=== PATIENT | female | born 1970 | race Caucasian/White ===

== ENCOUNTER 2022-08-03 12:07 | Outpatient (CLI) | payer OTHER, SELFPAY | END 2022-08-03 12:08 | disposition home or self-care (01) | LOC: NFLDREF 08-04 01:05 | PROVIDERS: PCP Family Medicine; Referring Provider Family Medicine; Visit Provider Family Medicine | DX: D68.59 Other primary thrombophilia (principal); N64.9 Disorder of breast, unspecified; F33.9 Major depressive disorder, recurrent, unspecified; F90.9 Attention-deficit hyperactivity disorder, unspecified type; I10 Essential (primary) hypertension; E78.5 Hyperlipidemia, unspecified | CPT/HCPCS: 85610 ==

== ENCOUNTER 2022-08-04 09:10 | Outpatient (CLI) | payer OTHER, SELFPAY | END 2022-08-04 09:11 | disposition home or self-care (01) | LOC: NFLDREF 21:19 | PROVIDERS: PCP Family Medicine; Referring Provider Family Medicine; Visit Provider Family Medicine | DX: R53.83 Other fatigue (principal); F33.9 Major depressive disorder, recurrent, unspecified; E66.01 Morbid (severe) obesity due to excess calories; F90.9 Attention-deficit hyperactivity disorder, unspecified type | CPT/HCPCS: 80053; 80061; 80306; 82043; 82570; 84443 ==

== ENCOUNTER 2022-08-13 09:41 | Outpatient (CLI) | payer OTHER, SELFPAY ==
--- NOTE | 2022-08-13 09:45 | CRLHL7_ITS ---
For Patients: As a result of the Cures Act, medical imaging exams and procedure reports are released immediately into your electronic medical record. You may view this report before your referring provider. If you have questions, please contact your health care provider. DIGITAL DIAGNOSTIC BILATERAL MAMMOGRAM USING TOMOSYNTHESIS AND COMPUTER-AIDED DETECTION RIGHT AXILLARY ULTRASOUND CLINICAL HISTORY: RIGHT breast axillary pain. COMPARISON: 08/16/2020, 07/25/2020, 04/22/2015, 01/23/2014. TECHNIQUE: Digital BILATERAL mammogram in four projections. Tomosynthesis and CAD utilized. Real-time ultrasound imaging of RIGHT axilla with imaging documentation. BREAST COMPOSITION: There are areas of scattered fibroglandular density. FINDINGS: 3D CC/MLO BILATERAL mammogram images submitted. No suspicious masses or architectural distortion. No adenopathy. No suspicious calcifications. Targeted RIGHT axillary ultrasound performed. No adenopathy or fluid collection. No solid mass. IMPRESSION: Normal BILATERAL mammograms and normal targeted RIGHT axillary ultrasound. No evidence of malignancy. RECOMMENDATIONS: Clinical follow-up. Routine screening mammography. Results and recommendations discussed with the patient. BI-RADS Category 2: Benign A lay language report of this examination will be provided to the patient. Dictated by Dyao Jarquin MD @ 08/13/2022 12:00:03 PM jj/Dictated by: Dayo Jarquin MD @ 08/13/2022 12:00:00 PM (Electronically Signed)
--- NOTE | 2022-08-13 10:15 | CRLHL7_ITS ---
For Patients: As a result of the Cures Act, medical imaging exams and procedure reports are released immediately into your electronic medical record. You may view this report before your referring provider. If you have questions, please contact your health care provider. PLEASE SEE DIGITAL DIAGNOSTIC BILATERAL MAMMOGRAM PERFORMED SAME DAY CRL:jesse molina/Dictated by: Dayo Jarquin MD @ 08/13/2022 12:00:00 PM (Electronically Signed)
== END 2022-08-13 09:42 | disposition home or self-care (01) ==
LOC: MAMMO 09:41
PROVIDERS: PCP Family Medicine; Visit Provider Family Medicine
DX: N64.9 Disorder of breast, unspecified (principal)
CPT/HCPCS: 76642; 77066; G0279

== ENCOUNTER 2022-10-08 11:57 | Outpatient (CLI) | payer OTHER, SELFPAY | END 2022-10-08 11:58 | disposition home or self-care (01) | LOC: NFLDREF 10-11 09:44 | PROVIDERS: PCP Family Medicine; Referring Provider Family Medicine; Visit Provider Nurse Practitioner Family | DX: R30.0 Dysuria (principal); N30.90 Cystitis, unspecified without hematuria; N30.01 Acute cystitis with hematuria | CPT/HCPCS: 87086; 87186 ==

== ENCOUNTER 2022-10-19 10:13 | Outpatient (CLI) | payer OTHER, SELFPAY | END 2022-10-19 10:14 | disposition home or self-care (01) | PROVIDERS: PCP Family Medicine; Visit Provider Family Medicine | DX: Z77.21 Contact with and (suspected) exposure to potentially hazardous body fluids (principal); M25.512 Pain in left shoulder | CPT/HCPCS: 80074 ==

== ENCOUNTER 2022-11-05 08:05 | Outpatient (CLI) | payer OTHER, SELFPAY ==
--- NOTE | 2022-11-05 08:15 | CRLHL7_ITS ---
For Patients: As a result of the 21st Century Cures Act, medical imaging exams and procedure reports are released immediately into your electronic medical record. You may view this report before your referring provider. If you have questions, please contact your health care provider. HISTORY: Right shoulder pain. TECHNIQUE: Noncontrast MRI of the right shoulder. COMPARISON: No prior. FINDINGS: Rotator cuff: The distal supraspinatus tendon anteriorly is severely abnormal over an approximately 1.2 cm anterior/posterior by 1.2 cm medial/lateral extent with high-grade partial to full-thickness tendon tearing present as noted on coronal oblique T2 image #12 series 7. There is no supraspinatus muscle atrophy. Moderate tendinosis of the distal infraspinatus tendon is present. There is cyst formation along the course of the tendon proximal to the footplate and extending towards the lateral margin of the musculotendinous junction. The infraspinatus muscle mass is maintained. Distal teres minor tendon is intact. Teres minor muscle mass is maintained. There is partial tearing of the superior cm of the distal subscapularis tendon. Subscapularis muscle mass is maintained. - AC joint and coracoacromial arch: AC joint degenerative arthrosis. Coracoclavicular ligament intact. Mild lateral downward sloping of the acromion. Acromial morphology is intermediate between type 1 and type 2. There is no significant subacromial spurring. No os acromiale. There is prominence of the coracoacromial ligament. The acromiohumeral interval measures approximately 9 mm. There is a small amount of subacromial-subdeltoid bursal fluid. The subcoracoid interval measures 8 mm. - Biceps-labral complex: Mild tendinosis of the proximal long head biceps tendon. No dislocation of tendon from bicipital groove. Moderate fluid within the biceps tendon sheath. Degenerative fraying superior labrum. Labrum below the equator is intact. - Glenohumeral joint: Small effusion. The articular surfaces are maintained. No significant malalignment. - Bones and soft tissues: No acute fracture or avascular necrosis. No abnormality within the suprascapular or spinoglenoid notches nor within the quadrilateral space. There is reactive cystic-like change involving greater tuberosity anteriorly. IMPRESSION: 1. Severely abnormal anterior distal supraspinatus tendon with high-grade partial to full-thickness tendon tearing. No muscle atrophy. 2. Infraspinatus tendinosis with cyst formation associated with the tendon proximal to the footplate. 3. Partial tearing of the superior cm distal subscapularis tendon. 4. Tendinosis of the proximal long head biceps tendon. Fraying of the adjacent superior labrum. 5. Small glenohumeral joint effusion. 6. AC joint degenerative changes. 7. Subacromial subdeltoid bursal fluid is either reactive or reflects mild bursitis. Dictated by Rigoberto Brown MD @ 11/05/2022 1:40:04 PM (Electronically Signed)
== END 2022-11-05 08:06 | disposition home or self-care (01) ==
PROVIDERS: PCP Family Medicine; Visit Provider Family Medicine
DX: M25.511 Pain in right shoulder (principal); M75.101 Unspecified rotator cuff tear or rupture of right shoulder, not specified as traumatic; M25.411 Effusion, right shoulder; M75.51 Bursitis of right shoulder
CPT/HCPCS: 73221

== ENCOUNTER 2023-02-11 14:34 | Outpatient (CLI) | payer OTHER, SELFPAY | END 2023-02-11 14:35 | disposition home or self-care (01) | LOC: NFLDREF 02-14 17:34 | PROVIDERS: PCP Family Medicine; Referring Provider Family Medicine; Visit Provider Physician Assistant | DX: R30.0 Dysuria (principal); N39.0 Urinary tract infection, site not specified | CPT/HCPCS: 87086 ==

== ENCOUNTER 2023-03-10 13:28 | Outpatient (CLI) | payer OTHER, SELFPAY | END 2023-03-10 13:29 | disposition home or self-care (01) | PROVIDERS: PCP Family Medicine; Visit Provider Family Medicine | DX: Z01.818 Encounter for other preprocedural examination (principal); R42 Dizziness and giddiness | CPT/HCPCS: 80053; 84443 ==

== ENCOUNTER 2023-03-15 10:54 | Outpatient (CLI) | payer OTHER, SELFPAY | END 2023-03-15 10:55 | disposition home or self-care (01) | PROVIDERS: PCP Family Medicine; Visit Provider Family Medicine | DX: Z01.818 Encounter for other preprocedural examination (principal); D68.59 Other primary thrombophilia; E11.42 Type 2 diabetes mellitus with diabetic polyneuropathy; E66.01 Morbid (severe) obesity due to excess calories | CPT/HCPCS: 85730 ==

== ENCOUNTER 2023-03-22 06:20 | Day surgery (SDC) | payer OTHER, SELFPAY ==
[2023-03-22] VITALS (18 sets, daily range): BP systolic 127–153; BP diastolic 70–96; PULSE 56–78; RESP 12–16; TEMP 36.1–36.8; O2SAT 94–100; BMI 37.4
--- OUTSIDE RECORDS SUMMARY | 2023-03-22 06:23 | XMS_ITS | Continuity of Care Document ---
Author Name Unknown Organization [facility] Address [address] [address] [place] [address] Phone Care Team Providers Care Protective Signal Repairer Name Role Phone Unavailable Unavailable Unavailable Allergies, Adverse Reactions, Alerts Substance Reaction Status Criticality NSAIDS (Non-Steroidal Anti-Inflammatory Drug) on couma din Active No Information Medications Medication Instructions Dosage Effective Dates (start - stop) Status Comments Lipitor 20 mg Tab Take one tablet by mouth daily - Active Alva 180 mg Tab Take one tablet by mouth daily - Active Nasonex 50 mcg/Actuation [place] Inhale one time via nostril daily - Active Nexium 40 mg Cap Take one tablet by mouth daily - Active warfarin 2.5 mg Tab Use as directed - Acti ve Procedures Procedure Date Ugi Endo; Dx W/wo Collec Advance Directives Directive Yes / No Effective Date File Name No Information Encounters Encounter Description Practice Location Reason(s) For Visit Diagnoses Date Provider Providers Copied on Encounter [facility], [address] [address], [place], [place], [id number], tel:[phone] [facility] Abn X-ray GI tract No Information Referring Provider: Miles Lockhart MD [facility], [address] [place] [address], [address]. tel:[phone] Family History Family Member Type Diagnosis Age At Onset No Information Payers Payer name Insurance type Covered republican ID Authoriza tion(s) No Information Social History Type Description Quantity Date Captured Comments Sex Female Smoking Status No Information Chief Complaint And Reason For Visit No Information Reason For Referral Reason For Referral No Information History Of Present Illness Encounter Date Complaint History Of Prese nt Illness No Information Functional Status Date Functional Assessmen t No Information Instructions Date Instruction Additional Infor mation No Information Assessments Type Assessment Date No Information Patient Care Teams Name Effective Dates (start - stop) Status Members No Information
--- OUTSIDE RECORDS SUMMARY | 2023-03-22 06:23 | XMS_ITS | Continuity of Care Document ---
Author Name Unknown Organization [facility] Address [address] [address] [place] [address] Phone Care Team Providers Care Lockstitch Coat Joiner Name Role Phone Unavailable Unavailable Unavailable Allergies, Adverse Reactions, Alerts Substance Reaction Status Criticality NSAIDS (Non-Steroidal Anti-Inflammatory Drug) on couma din Active No Information Medications Medication Instructions Dosage Effective Dates (start - stop) Status Comments Lipitor 20 mg Tab Take one tablet by mouth daily - Active Alva 180 mg Tab Take one tablet by mouth daily - Active Nasonex 50 mcg/Actuation [place] Inhale one time via nostril daily - [...] Diagnoses Date Provider Providers Copied on Encounter [facility], [address] [address], [place], [place], [id number], tel:[phone] [facility] Abn X-ray GI tract No Information Referring Provider: Miles Lockhart MD [facility], [address] [place] [address], [address]. tel:[phone] Family History Family Member Type Diagnosis Age At Onset No Information Payers Payer name Insurance type Covered alliance party ID Authoriza tion(s) No Information Social History [...]
[2023-03-22] MEDS: LACTATED RINGERS 1000 ML 1,000 ML 100 ML IV (07:00)
[2023-03-22] MEDS: fentaNYL 100 MCG/2 ML inj IVP (07:22)
[2023-03-22] MEDS: MIDAZOLAM HCL 1 MG/ML inj IVP (07:22)
--- NOTE | 2023-03-22 07:33 | P.NB_ITS ---
Nerve Block Nerve Block Time Seen by Provider: 07:30 Date Seen: 03/22/23 Type of block requested by surgeon for post-operative analgesia: supraclavicular Side: right Time out performed: Yes Verification of patient name: Yes Verification of date of : Yes Site marking: site marked Name of person performing procedure: Harrison Assistants, if any: Monster Continuous monitoring Was continuous monitoring of O2 sat, B/P, cardiac technologist, recorded every 15 minutes?: Yes Procedure Checklist: sterile prep, needles and gloves Ultrasound guided. Images saved: Yes Medications given in 5ml increments after negative aspiration: Ropivicaine %: 0.5 mL: 20 Needle gauge: 22 Decadron (mg): 10 Precedex (mcg): 25 Patient tolerated procedure well: Yes Block Charges Block Charge (with Pro Fee): Brachial Plexus Use of Ultrasound Machine for Block: Yes- US Guidance/pain block
[2023-03-22 07:39] LABS: INR 1.38 (0.91-1.10); Prothrombin Time 17.9 Seconds
--- NOTE | 2023-03-22 07:44 | SUR.PREOP ---
TIME?OUT:?0720 PT/RN/MDA?VERIFICATION?OF?SURGICAL?SITE,?PROCEDURE,?AND?CONSENT OBTAINED?PRIOR?TO?INVASIVE?PROCEDURE.
[2023-03-22] MEDS: SCOPOLAMINE 1 MG/3 DAY PATCH 1 PATCH TRANSDERMA (07:45)
[2023-03-22] MEDS: EPINEPHrine 1 MG in SODIUM CHLORIDE IRRIG SOLUTION 3,000 ML 9003 MG IRRIGATION ×4 (08:30→09:05)
--- NOTE | 2023-03-22 09:40 | P.ORPRC_ITS ---
Procedure Note Date of procedure: 03/22/23 Procedure: PREOPERATIVE DIAGNOSES: 1. Right shoulder rotator cuff tear. 2. Right shoulder subacromial impingement syndrome. POSTOPERATIVE DIAGNOSES: 1. Right shoulder rotator cuff tear - supraspinatus. 2. Right shoulder subacromial impingement syndrome. NAME OF OPERATION: 1. Right shoulder arthroscopic rotator cuff repair. 2. Right shoulder arthroscopic bursectomy, subacromial decompression/partial acromioplasty. SURGEON: Yoshi Beltran MD MANAGER CALL CENTER: Harmeet Rudd. Of note, a skilled insurance underwriting assistant was critical for this case to aide in patient positioning, suture manipulation, arm positioning, instrument positioning, and closure. ANESTHESIA: General plus preoperative supraclavicular block. EBL: 25 mL IMPLANTS: Arthrex 4.75 mm BioComposite SwiveLock suture anchor (x2); Arthrex 2.6 mm standard FiberTak RC (x1) COMPLICATIONS: None evident INDICATIONS: The patient is a pleasant, 52-year-old female who has experienced right shoulder pain that has been increasing in recent time. Physical exam and imaging were consistent with a rotator cuff tear. Given their findings, as well as the weakness and pain, and inadequate response to nonoperative management, recommendation was made for surgery. FINDINGS: Exam under anesthesia revealed stable shoulder with excellent range of motion. The diagnostic arthroscopy revealed grade 2-3 chondromalacia anterior humeral head. The Subscapularis tendon was torn from its upper border with moderate retraction. The long head of the biceps tendon was dislocated out of the bicipital groove and partially torn and moderate thickness manner. The superior rotator cuff tendon was found to be torn high-grade partial-thickness manner through the anterior supraspinatus. The labrum was degeneratively frayed in the anterior and superior aspects. No loose bodies were identified within the pouch or subscapularis recess. PROCEDURE: Following a thorough discussion of risks, benefits, and alternatives, consent was obtained and the right shoulder was marked. The pa tient was brought to the operating room and placed supine on the operating table. Induction of anesthesia was completed after preoperative supraclavicular block was administered in preop holding. Appropriate time out was performed identifying proper patient, site, and procedure. 2 g IV Ancef was administered within 1 hour of incision preoperatively. The right upper extremity was prepped and draped in the appropriate sterile fashion using ChloraPrep prep. This was after the patient was positioned in the beach chair with their head in neutral alignment and all bony prominences well padded. The shoulder was insufflated with 20mL of normal saline via an 18g spinal needle from a posterior approach. An 11 blade skin incision allowed a blunt trochar to be inserted and diagnostic arthroscopy to be performed with the findings as noted above. An anterior portal was established with an outside in technique. This allowed the probe to be inserted and confirm the diagnostic arthroscopic findings. The shaver was then inserted and allowed debridement of the anterior and superior labrum as well as the the anterior loose chondral tissue in the humeral head. Finally, biceps tenotomy was performed with debridement of the biceps stump. Following this, the upper border subscapularis was repaired after debriding the lesser tuberosity with the shaver and [place] cautery. Subscapularis was captured in horizontal mattress fashion with a fiber tape suture. The tails were brought to a single anchor in the lesser tuberosity with excellent reapproximation of the subscap tendon and good excursion/tension. Thereafter, the subacromial space was entered. Here, a complete bursectomy and partial acromioplasty/subacromial decompression was performed with a combination of radiofrequency ablator, the shaver, and a 5.5 mm bur. Further inspection of the supraspinatus and infraspinatus rotator cuff was performed. This identified the tear as noted above. The margins of the tear were debrided, and the greater tuberosity was debrided with a combination of the [place]ollo cautery, shaver, and bur on reverse setting. [After gentle decortication, a single 2.6 mm FiberTak RC was placed along the medial row at the articular margin edge. The 4 suture tails were all passed independently and brought to a single lateral 4.75 mm anchor. The rotator cuff showed excellent reapproximation of the greater tuberosity with good security upon probing. Prior to anchor truck driver rubbish collector removal, the eyelet sutures were tugged on for each anchor and found that the anchor had excellent stability within the bone. The shoulder was placed through range of motion and found to be stable. The rotator cuff was re-probed and found to be stable. Instruments were removed. Excess fluid was drained, closure performed with 4-0 Monocryl and Steri-Strips. Dressings were applied. Sling was applied. The patient was awoken from anesthesia and transferred to the PACU in stable condition. A skilled insurance underwriting assistant was critical for this case to aid in patient positioning, limb positioning, skill to manipulate arthroscopic instruments and camera, suture management, patient safety, and closure. PLAN: 1. Elbow, forearm, wrist and digit range of motion as tolerated. 2. Encouraged ice. 3. Percocet for pain as needed. 4. Sling at all times except for ROM and showering. 5. Follow up with PA visit in 1-2 weeks for wound check. Initiate physical therapy following that visit for passive range of motion. Initiate active assisted range of motion at 5 weeks. May do pendulums now.
--- NOTE | 2023-03-22 10:08 | W.ANESCHARGE ---
Anesthesia Charges Start Date/Time Anesthesia Start Date: 03/22/23 Anesthesia Start Time: 07:38 Stop Date/Time Anesthesia Stop Date: 03/22/23 Anesthesia Stop Time: 10:01
[2023-03-22] MEDS: fentaNYL 100 MCG/2 ML inj 50 MCG IVP ×2 (10:10→10:16)
--- NOTE | 2023-03-22 10:30 | W.ANESCHARGE ---
Anesthesia Charges Start Date/Time Anesthesia Start Date: 03/22/23 Anesthesia Start Time: 07:38 Stop Date/Time Anesthesia Stop Date: 03/22/23 Anesthesia Stop Time: 10:01
== END 2023-03-22 12:56 | disposition home or self-care (01) ==
PROVIDERS: PCP Family Medicine; Visit Provider Orthopaedic Surgery Sports Medicine
PROC: (CPT 29805; principal; 2023-03-22 07:30)
DX: M75.101 Unspecified rotator cuff tear or rupture of right shoulder, not specified as traumatic (principal); M75.41 Impingement syndrome of right shoulder; G89.18 Other acute postprocedural pain
CPT/HCPCS: 29827; 29828; 29826; 29823; 1630; 36415; 64415; 76942; 82962; 85610; A9270; C1713; J0171; J0330; J1100; J2250; J2405; J2704; J2710; J2795; J3010; J7120; L3670

== ENCOUNTER 2023-07-29 09:40 | Outpatient (CLI) | payer MEDICAID, SELFPAY | END 2023-07-29 09:41 | disposition home or self-care (01) | PROVIDERS: PCP Family Medicine; Visit Provider Family Medicine | DX: E78.5 Hyperlipidemia, unspecified (principal); E11.9 Type 2 diabetes mellitus without complications; I10 Essential (primary) hypertension | CPT/HCPCS: 80053; 80061; 83036 ==

== ENCOUNTER 2023-08-27 08:37 | Outpatient (CLI) | payer MEDICARE, SELFPAY ==
--- OUTSIDE RECORDS SUMMARY | 2023-08-30 07:28 | XMS_ITS | Referral Summary ---
Author Name Unknown Organization [facility] Address [address] [place] [address] Care Team Providers Care Military Professional Name Role Phone [facility], [facility] Primary Care Provider Allergies Active Allergy Reactions Criticality Noted Date Comments Adhesive Tape 09/19/2021 Codeine GI Disturbance 09/19/2021 Medications Medication Sig Dispensed Refills Start Date End Date Status cyclobenzaprine (FLEXERIL) 10 MG tablet Take 0.5-1 tablets (5-10 mg) by mouth 3 times daily as needed for muscle spasms 20 tablet 06/14/2021 Active Social History Tobacco Use Types Packs/Day Years Used Date Smoking Tobacco: Never Assessed Adolescent Education Answer Date Record ed Getting School Help Needed Not on file 01/31 Sex and Gender Information Value Date Recorded Sex Assigned at Not on file Gender Identity Not on file Sexual Orientation Not on file Last Filed Vital Signs Vital Sign Reading Time Taken Comments Blood Pressure 119/81 09/19/2021 3:00 PM CDT Pulse 81 09/19/2021 3:00 PM CDT Temperature 36.9 ??C (98.4 ??F) 09/19/2021 1:26 PM CD T Respiratory Rate 18 09/19/2021 3:00 PM CDT Oxygen Saturation 98% 09/19/2021 3:00 PM CDT Inhaled Oxygen Concentration - - Weight 88.8 kg (195 lb 12.3 oz) 06/14/2021 1:25 PM [employer] Height - - Body Mass Index - - Plan of Treatment Not on file Procedures Procedure Name Priority Date/Time Associated Diagnosis Comments BASIC METABOLIC PANEL STAT 09/19/2021 1:38 PM CDT from Last 3 Months or Most Recently Relevant to Health Maintenance Results * (ABNORMAL) Basic metabolic panel (BMP) (09/19/2021 1:38 PM CDT) Sodium 138 133 - 144 mmol/L 09/19/2021 2:03 PM CDT LABORATORY Potassium 3.8 3.4 - 5.3 mmol/L 09/19/2021 2:03 PM CDT LABORATORY Chloride 105 94 - 109 mmol/L 09/19/2021 2:03 PM CDT LABORATORY Carbon Dioxide (CO2) 29 20 - 32 mmol/L 09/19/2021 2:03 PM CDT LABORATORY Anion Gap 4 3 - 14 mmol/L 09/19/2021 2:03 PM CDT LABORATORY Urea Nitrogen 13 7 - 30 mg/dL 09/19/2021 2:03 PM CDT LABORATORY Creatinine 0.64 0.52 - 1.04 mg/dL 09/19/2021 2:03 PM CDT LABORATORY Calcium 9.8 8.5 - 10.1 mg/dL 09/19/2021 2:03 PM CDT LABORATORY Glucose 136(H) 70 - 99 mg/dL 09/19/2021 2:03 PM CDT LABORATORY GFR Estimate >90 >60 mL/min/1.7 3m2 09/19/2021 2:03 PM CDT LABORATORY Comment:Effective March 272020 eGFRcr in adults is calculated using the 2020 CKD-EPI creatinine equation which includes age and gender (Tj et al., NEJ, DOI: 10.1056/WMYIrp9937706) Blood BLOOD SPECIMEN / Unknown Venipuncture / Unknown 09/19/2021 1:38 PM CDT 09/19/2021 1:43 PM CDT Felipe Senior MD LAB - BLOOD [facility] [address] Lab (1st floor, no room number) [place] [address], [facility] [phone] from Last 3 Months or Most Recently Relevant to Health Maintenance Care Teams Military Professional Relationship Specialty Start Date End Date [facility] [address] [place] [address] PCP - General 09/19/21
--- OUTSIDE RECORDS SUMMARY | 2023-08-30 07:28 | XMS_ITS | Clinical Summary ---
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 Height - - Body Mass Index - - Plan of Treatment Health Maintenance Due Date Last Done Comments A1C 1972 ADVANCE CARE PLANNING 1972 ANNUAL REVIEW OF HM ORDERS 1972 CT COLONOGRAPHY 1972 DIABETIC FOOT EXAM 1972 EYE EXAM 1972 FIT 1972 FLEX SIG 1972 LIPID 1972 MAMMO SCREENING 1972 MICROALBUMIN 1972 YEARLY PREVENTIVE VISIT 1972 sDNA (Cologuard) 1972 COLONOSCOPY 1982 COLORECTAL CANCER SCREENING 1982 HIV SCREENING 10/27/1987 HEPATITIS C SCREENING 1990 PAP 1993 Pneumococcal Vaccine: Pediatrics (0 to 5 Years) and At-Risk Patients (6 to 64 Years) (2 of 2 - PCV) 12/01/2018 12/01/2017 BMP 09/19/2022 09/19/2021 ZOSTER IMMUNIZATION (1 of 2) 2022 COVID-19 Vaccine (4 - season) 2022 07/21/2021, 10/21/2020, 09/19/2020 PHQ-2 (once per calendar year) 2023 INFLUENZA VACCINE (Season Ended) 2023 01/16/2021, 01/10/2020, 02/11/2018, Additional history exists DTAP/TDAP/TD IMMUNIZATION (3 - Td or Tdap) 11/04/2026 11/04/2016, 12/16/2006, 12/23/2001 HEPATITIS B IMMUNIZATION Completed 019, 03/01/2007, 12/16/2006 HPV IMMUNIZATION Aged Out No longer e ligible based on patient's age to complete this topic IPV IMMUNIZATION Aged Out No longer e ligible based on patient's age to complete this topic MENINGITIS IMMUNIZATION Aged Out No l onger eligible based on patient's age to complete this topic RSV MONOCLONAL ANTIBODY Aged Out No l onger eligible based on patient's age to complete this topic Procedures Procedure Name Priority Date/Time Associated Diagnosis [...] - 14 mmol/L 09/19/2021 2:03 PM CDT [facility] Urea Nitrogen 13 7 - 30 mg/dL 09/19/2021 2:03 PM CDT LABORATORY Creatinine 0.64 0.52 - 1.04 mg/dL 09/19/2021 2:03 PM CDT [facility] Calcium 9.8 8.5 - 10.1 mg/dL 09/19/2021 2:03 PM CDT LABORATORY Glucose 136(H) 70 - 99 mg/dL 09/19/2021 2:03 PM CDT LABORATORY GFR Estimate >90 >60 mL/min/1.7 3m2 09/19/2021 2:03 PM CDT LABORATORY Comment:Effective March 272020 eGFRcr in adults is calculated using the 2020 CKD-EPI creatinine equation which includes age and gender (Tj et al., NEJM, DOI: 10.1056/YVGJjx5234592) Blood BLOOD SPECIMEN / Unknown Venipuncture / Unknown 09/19/2021 1:38 PM CDT 09/19/2021 1:43 PM CDT Felipe Senior MD LAB - BLOOD [facility] Organization Address City/State/ZIP Co de Phone Number LABORATORY [facility] [address] Lab (1st floor, no room number) [place] [address], [facility] [phone] from Last 3 Months or Most Recently Relevant to Health Maintenance Care Teams Software Project Lead Relationship Specialty Start Date End Date [facility], [facility] [address] [place] [address] PCP - General 09/19/21
--- OUTSIDE RECORDS SUMMARY | 2023-08-30 07:29 | XMS_ITS | Clinical Summary ---
Author Name Unknown Organization [employer] [facility] [employer] [facility] Address [place], [place] [address] Care Team Providers Care Account Services Specialist Name Role Phone Greg Lovell MD Unavailable [phone] Juan Jones Unavailable Unavailable Pcp, No Primary Care Provider Unavailabl e Allergies Active Allergy Reactions Criticality Noted Date Comments Codeine Nausea And Vomiting 10/28/2004 Latex Rash 07/14/2021 Lisinopril Cough 09/10/2021 Milk Diarrhea,Vomiting 2013 Lactose intolerance Mold Extracts Other - Describe In Comment Field 02/24/2005 stuffy nose, sneezing Unlisted Allergen (Include Detail In Comments) Other - Describe In Comment Field 09/17/2015 Environmental allergies, dust- sneezing, itchy eyes. Adhesive Tape Rash 02/24/2005 Satin tape Colesevelam Palpitations 12/19/2004 Medications Medication Sig Dispensed Refills Start Date End Date Status lancets (MICROLET LANCET)Indications:Uncon trolled type 2 diabetes mellitus without complication, without long-term current use of insulin Dispense item covered by pt ins. E11.65 NIDDM type II, uncontrolled - Test 3 times/day, Reason: High A1C 100 Each 5 7 Active blood-glucose meterIndications:Uncontr olled type 2 diabetes mellitus without complication, without long-term current use of insulin Dispense meter covered by pt ins. E11.9 NIDDM type II - Test 1 time/day 1 Device 8 Active cetirizine (ZYRTEC) 10 mg tabletIndications:Chroni c nonseasonal allergic rhinitis due to pollen Take 1 tablet by mouth once daily. 90 tablet 1 8 Active blood sugar diagnostic (CONTOUR NEXT STRIPS) stripIndications:Uncontr olled type 2 diabetes mellitus without complication, without long-term current use of insulin Dispense item covered by pt ins. E11.65 NIDDM type II, uncontrolled - Test 3 times/day, Reason: High A1C 300 Strip 3 8 Active medication order composerIndications:Obst ructive sleep apnea New CPAP supplies: Humidifier Chamber x1, nasal mask with cushion x1, Tubing (heated if desired) x1, Headgear x1, Disposable filters (reusable and disposable) X1; 1 unit 8 Active triamcinolone (ARISTOCORT; KENALOG) 0.1 % creamIndications:Atopic dermatitis, unspecified type,Axillary mass, right Apply topically to affected area(s) 2 times daily. Up to 2 weeks for eczema flare. 45 g 1 8 Active Additional Information Patient taking differently:TopicalBID PRN, Up to 2 weeks for eczema flare., Informant: Patient's Recall, Reported on 07/14/2021 triamcinolone, 55 mcg each actuation, nasal (NASACORT AQ) 55 mcg nasal sprayIndications:Chronic nonseasonal allergic rhinitis due to pollen Inhale 2 Sprays in the nostril(s) once daily. 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 Use for eye allergy symptoms. Use Maximum of once daily. 1 Bottle 9 1 Active famotidine (PEPCID) 20 mg tablet Take 20 mg by mouth at bedtime. Active hydrOXYzine HCL (ATARAX) 10 mg tabletIndications:Insomn ia, unspecified type Take 1 Tablet (10 mg) by mouth at bedtime. 30 Tablet 2 Active atorvastatin (LIPITOR) 40 mg tabletIndications:Pure hypercholesterolemia Take 1 Tablet (40 mg) by mouth at bedtime. 90 tablet. 1 2 Active multivitamin (Multiple Vitamins) tablet Take 1 Tablet by mouth once daily. 0 2 Active CPAPIndications:VIDYA (obstructive sleep apnea) CPAP machine for home use at pressure 4-15 cmw, nasal mask x1/3month with nasal cushion x2/mo 1 Each 11 2 Active losartan (COZAAR) 50 mg tabletIndications:Essent ial hypertension Take 1 Tablet (50 mg) by mouth once daily. 90 Tablet 1 2 Active FLUoxetine (PROZAC) 20 mg capsuleIndications:Moder ate episode of recurrent major depressive disorder (HC) Take 2 Capsules (40 mg) by mouth once daily. 180 Capsule 1 2 Active minoxidiL (LONITEN) 2.5 mg tabIndications:Essential hypertension,Hair loss Take 2 Tablets (5 mg) by mouth once daily. 180 Tablet 1 2 Active traZODone (DESYREL) 50 mg tabletIndications:Insomn ia, unspecified type TAKE 1/2 TO 1 (ONE-HALF TO ONE) TABLET BY MOUTH AT BEDTIME NEEDED FOR SLEEP 90 Tablet 3 Active warfarin (COUMADIN) 1 mg tabletIndications:Person al history of thrombophlebitis,Anticoa gulation monitoring, INR range 2-3 Take by mouth 3 mg (2 mg x 1 and 1 mg x 1) every Tue, Sat; 2 mg (2 mg x 1) all other days in the evening OR as directed 26 Tablet 3 Active warfarin (COUMADIN) 2 mg tabletIndications:Person al history of thrombophlebitis,Anticoa gulation monitoring, INR range 2-3,Primary hypercoagulable state (HC) Take by mouth 3 mg (2 mg x 1 and 1 mg x 1) every Tue, Sat; 2 mg (2 mg x 1) all other days in the evening OR as directed 3 Active montelukast (SINGULAIR) 10 mg tabletIndications:Chroni c nonseasonal allergic rhinitis due to pollen Take 1 Tablet (10 mg) by mouth at bedtime. 90 Tablet 2 3 Active cyclobenzaprine (FLEXERIL) 10 mg tabletIndications:Chroni c tension-type headache, not intractable Take 1 Tablet (10 mg) by mouth at bedtime if needed for Muscle Spasm. 30 Tablet 3 3 Active diazePAM (VALIUM) 2 mg tabletIndications:Vertig o Take 1 Tablet (2 mg) by mouth 3 times daily if needed (vertigo). 7 Tablet 3 Active meclizine (ANTIVERT) 25 mg tabletIndications:Vertig o Take 1 Tablet (25 mg) by mouth three times daily. 20 Tablet 3 Active Active Problems Problem Noted Date Diagnosed Date Type 2 diabetes mellitus wit h hyperglycemia, without long-term current use of insulin 09/10/2021 Severe episode of recurrent major depressive disorder, without psychotic features 07/03/2021 Type 2 diabetes mellitus wit hout complication, without long-term current use of insulin 07/03/2021 Controlled substance agreement signed 09/30/2020 Overview: Adderall for ADHD Pam Perla MD...09/30/2020 5:29 PM Attention deficit hyperactiv ity disorder (ADHD), combined type 03/03/2019 Hyperplastic polyp of sigmoid colon 11/23/2018 Overview: Colonoscopy 10/2018. Repeat in 5 years. Essential hypertension 10/21/2018 Morbid exogenous obesity 07/14/2017 Chondromalacia of patella, right 09/16/2013 Degenerative arthritis of right knee 09/16/2013 Moderate episode of recurrent major depressive d isorder 09/23/2012 Endometritis 07/03/2012 Hemorrhoid 03/12/2011 S/P repeat LST section with WES 011 S/P bilateral tubal ligation 03/10/2011 Overview: [place] procedure VIDYA 07/30/2010 AHI- 22, REM-94 with desats 011 Family history of malignant neoplasm of gastrointestinal tract 09/05/2008 Overview: Colonoscopy 08/2008 hemorrhois repeat in 5 years Colonoscopy 01/2014 polyp repeat in 5 years Colonoscopy 10/2018 hyperplastic polyp, repeat in 5 years PTSD (post-traumatic stress disorder) 07/17/2008 HYPERCHOLESTEROLEMIA, PURE 10/14/2000 Overview: Atorvastatin (Lipitor) June 2012: Stopped due to Patient concern that statin can cause diabetes. 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 Coach: Dr Jones)~anticoag therapy~hypercholesterolemia~obesity Resolved Problems Problem Noted Date Diagnosed Date Resolved Date Uncontrolled type 2 diabetes mellitus, without long-term current use of insulin 10/28/2016 07/03/2021 Overview: New diagnosis 10/2016 Prediabetes 05/14/2016 07/14/2017 Anticoagulation monitoring, INR range 2-3 01/23/2014 07/06/2022 GBS (group B Streptococcus c arrier), +RV culture, currently 03/05/2011 01/17/2014 Previous delivery a ffecting , antepartum 02/20/2011 03/10/2011 GDM, class A2 12/03/2010 05/14/2016 Advanced maternal age in 09/09/2010 04/29/2012 Screening, , for ma lformation by ultrasound 09/09/2010 04/29/2012 Adjustment disorder with depressed mood 12/04/2009 09/23/2012 Adjustment disorder with depressed mood 10/08/2006 07/17/2008 Anxiety state, unspecified 10/08/2006 0 07/17/2008 Esophageal reflux 08/10/2005 03/10/2011 Single liveborn, [facility] in [facility], delivered by delivery 03/05/2005 03/10/2011 Pain in joint, lower leg 12/03/2003 PAIN, ABDOMINAL, EPIGASTRIC 01/13/2001 03/10/2011 HYPERCHOLESTEROLEMIA, PURE 10/14/2000 1 05/10/2010 Obesity 07/14/2017 DISORDER, TOBACCO USE 2012 HYPERTRIGLYCERIDEMIA, SEVERE 03/10/2011 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 Immunizations Name Administration Dates Next Due AMB Influenza, IIV4 PF (=>6 mos Flulaval,Fluzone Fluarix)(Flu Clinic Only) 02/11/2018 COVID-19 vaccine (Moderna 100mcg/0.5mL) PF, MDV 10/21/2020,09/19/2020 COVID-19 vaccine (Moderna Fermín julio 50mcg/0.25mL) PF, MDV 07/21/2021 HepA-HepB (Twinrix) 04/21/2019,03/01/2007,200601/16/2007 Influenza, IIV3 (Age 6-35 mos) 12/20/2010 Influenza, IIV3 (Age >=3 years) 03/29/20 12,12/20/2010,01/11/2010,03/01,03/03/2006,02/17/2005,04/03/2003 Influenza, IIV4 01/02/2022, 1,01/10/2020,03/03,01/15/2016,01/17/2014 Influenza,CCIIV4 PRESERV FREE 04/16/2019 MMR 12/16/2006 Pneumococcal Conj 20-valent (Prevnar 20) 01/02/2022 Pneumococcal Poly,23-Valent (Pneumovax) 12/01/2017 Td (Age >=7 Years) 11/04/2016,12/23/2001 Tdap 12/16/2006 Tetanus Toxoid, Unspecified 11/04/2016 Tuberculin (PPD) 12/16/2006 Typhoid (injectable) 03/01/2007 Family History Medical History Relation Name Comments Other Brother CP Cancer-breast Father breast was rem gisele but not sure if it was cancerous Cancer-colon Father Heart Disease Father Hyperlipidemia Father Hypertension Father Other Father CAD ? ?VSD, CAB G, and valve replacment Heart Disease Maternal Aunt bypass Other Maternal Grandfather leukemi a, DVT in legs Diabetes Maternal Grandmother Heart Disease Maternal Uncle bypass Hyperlipidemia Mother Other Mother PE c oagulopathy Other Paternal Grandfather brain a neurysm Cancer-colon Paternal Grandmother Heart Disease Paternal Grandmother Relation Name Status Comments Brother Alive Father Maternal Aunt Maternal Grandfather Maternal Grandmother Alive Maternal Uncle Mother Alive Paternal Grandfather Paternal Grandmother Social History Tobacco Use Types Packs/Day Years Used Date Smoking Tobacco: Former Cigarettes 0.5 10 0 07/14/1999 - 07/13/2009 Smokeless Tobacco: Never Tobacco Cessation:Counseling Given: Yes Alcohol Use Standard Drinks/Week Comments Not Currently 0 (1 standard drink = 0.6 oz pur e alcohol) once a month PHQ-2 Answer Date Recorded PHQ-2 TOTAL SCORE 2 01/01/2022 Social Connections Answer Date Recorded Frequency of Communication with Friends and Fami ly Not on file 04/16/2021 Financial Resource Strain Answer Date R ecorded Difficulty of Paying Living Expenses Not on file 04/16/2021 Difficulty of Paying Living Expenses Not on file 04/16/2021 Sex and Gender Information Value Date Recorded Sex Assigned at Female 03/26/2020 9:52 AM CHILD SUPPORT CASE OFFICER Gender Identity Female 03/26/2020 9:52 AM CHILD SUPPORT CASE OFFICER Sexual Orientation Choose not to disclose 2019 9:52 AM CHILD SUPPORT CASE OFFICER Obstetrics History Para Term AB IAB SAB Ectopic Multiple Livin g Live Births 5 3 3 0 2 1 0 0 0 3 4 Date Outcome GA Total Labor Labor/2nd/3rd Weight Sex Delivery Anes PTL Keira A1 A5 Name Cl in 1987 AB 8w0 d 04/26 IAB 12w 0d ELECTIVE AB Dece ased 01/21 Term 39w 0d 9h 00m/ 3.94 kg (8 lb 11 oz) F Gener al N Aide ng MPP-A NW Comments:unfavorable c x 03/05 Term 38w 0d 3.35 kg (7 lb 6 oz) F Epidu ral N Aide ng MPP-A NW 03/09 Term 39w 2d M CS-LTranv N Aide ng Rishabh enko Delivery Location:[place] Last Filed Vital Signs Vital Sign Reading Time Taken Comments Blood Pressure 175/83 03/08/2023 9:00 PM CHILD SUPPORT CASE OFFICER Pulse 64 03/08/2023 9:00 PM CHILD SUPPORT CASE OFFICER Temperature 36.4 ??C (97.6 ??F) 03/08/2023 5:38 PM CS T Respiratory Rate 18 03/08/2023 5:38 PM CHILD SUPPORT CASE OFFICER Oxygen Saturation 99% 03/08/2023 9:00 PM CHILD SUPPORT CASE OFFICER Inhaled Oxygen Concentration - - Weight 86.2 kg (190 lb) 03/08/2023 5:38 PM CHILD SUPPORT CASE OFFICER Height 157.5 cm (5' 2) 03/08/2023 5:38 PM CHILD SUPPORT CASE OFFICER Body Mass Index 34.75 03/08/2023 5:38 PM CHILD SUPPORT CASE OFFICER Plan of Treatment Health Maintenance Due Date Last Done Comments Mammogram for age 45-75 08/16/2021 08/17/19 21, 07/25/2020, 04/22/2015, Additional history exists Zoster (shingles) series for age 50+ (1 of 2) 2022 COVID-19 vaccine series ( - season) 2022 07/21/2021, 10/21/2020, 09/19/2020 BMI (ht and wt on same day) for age 18+ 01/02/2023 01/02/2022, 04/25/2021, 09/21/2020, Additional history exists Depression screening for age 12+ 01/05/2023 01/05/2022, 01/02/2022, 07/18/2021, Additional history exists Colonoscopy through age 75 11/22/202311/21, 11/21/2018, 02/12/2014, Additional history exists Influenza for age 50-64 12/26/2023 01/03/20 22, 01/16/2021, 01/10/2020, Additional history exists Pap test for age 21-65 11/16/2024 , 11/17/2019, 10/05/2016, Additional history exists Lipids for age 45-75 09/10/2026 09/10/2021, 09/30/2020, 05/10/2020, Additional history exists Tetanus booster 11/04/2026 11/04/2016, 11/25, 12/23/2001 Tdap Completed 12/16/2006 HIV for age 15-65 Completed 11/17/2019, 09/09/2010 Hepatitis C screening for ag e 18-79 Completed 11/17/2019, 05/29/2002 Pneumococcal series for age 6-64 Completed 01/03/20, 12/01/2017 Procedures Procedure Name Priority Date/Time Associated Diagnosis Comments LIPID PANEL W REFLEX MEASURED LDL Routine 09/10/2021 11:04 AM CDT HYPERCHOLESTEROLEMIA , PURE XR MAMMO GISSEL UNI ADDL VIEWS RIGHT Routine 08/16/2020 8:20 AM CDT Abnormal mammogram ANTI HIV 1/2 Routine 11/17/2019 1:57 PM CDT Exposure to potentially hazardous body fluids ANTI HCV Routine 11/17/2019 1:57 PM CDT Exposure to potentially hazardous body fluids [employer] WORK[employer] THIN PREP PAP SCREEN IMAGED Routine 11/17/2019 1:49 PM CDT Cervical cancer screening COLONOSCOPY SCREENING Routine 11/21/2018 12:00 AM CDT History of colon polyps from Last 3 Months or Most Recently Relevant to Health Maintenance Results * (ABNORMAL) LIPID PANEL W REFLEX MEASURED LDL (09/10/2021 11:04 AM CDT) CHOLESTEROL,TOTAL 141 100 - 199 mg/dL 09/10/2021 5:12 PM CDT [facility] TRIGLYCERIDES 146 <150 mg/dL 09/10/2021 5:12 PM CDT [facility] HDL CHOLESTEROL 40(L) >40 mg/dL 5:12 PM CDT [facility] NON-HDL CHOLESTEROL 101 <145 mg/dl 09/10/2021 5:12 PM CDT [facility] CHOL/HDL RATIO 3.53 <4.50 09/10/2021 5:12 PM CDT [facility] LDL CHOLESTEROL 72 <=130 mg/dL 09/10/2021 5:12 PM CDT [facility] VLDL CHOLESTEROL 29 <=30 mg/dL 09/10/2021 5:12 PM CDT [facility] PROVIDER ORDERED STATUS RANDOM 09/10/2021 5:12 PM CDT [facility] Blood BLOOD SPECIMEN / Unknown Venipuncture / Unknown 09/10/2021 11:04 AM CDT 09/10/2021 11:04 AM CDT Kimmy Rodríguez NP CHEMISTRY [facility] [address] [place] [address], [place] * XR MAMMO GISSEL UNI ADDL VIEWS RIGHT (08/16/2020 8:20 AM CDT) Anatomical Region Laterality Modality BREASTS, Breast Right Mammograph y 08/16/2020 8:20 AM CDT Narrative 08/16/2020 10:46 AM CDT EXAM: XR MAMMO GISSEL UNI ADDL VIEWS RIGHT, US BREAST UNILATERAL RIGHT LIMITED LOCATION: [facility] DATE/TIME: 08/16/2020 8:20 AM INDICATION: ??49-year-old female called back from screening for focal asymmetry in the medial right breast middle depth. COMPARISON: Prior mammogram exams, including 07/25/2020, 04/22/2015, 01/23/2014, 01/02/2013. MAMMOGRAPHIC FINDINGS: Additional views of the right breast were performed. There are scattered areas of fibroglandular density. ??Breast tomosynthesis was used in interpretation. Additional mammographic views demonstrate a persistent 6 x 4 x 4 mm mass in the central, slightly medial breast at 3:00 anterior depth. Additional 8 x 4 x 4 mm mass in the retroareolar breast at anterior depth. ULTRASOUND FINDINGS: Targeted ultrasound of the central and medial right breast in the area of mammographic concern demonstrates a benign 4 x 3 x 4 mm simple cyst at 9:00 1 cm from the nipple with additional benign simple cyst at 12:00 retroareolar region, corresponding to the mammographic findings. IMPRESSION: Benign simple cysts correspond to the mammographic findings in the right breast. Recommend routine annual screening mammography. ACR BI-RADS Category 2: Benign. ?? Procedure Note Alina Zhang MD - 08/16/2020 EXAM: XR MAMMO GISSEL UNI ADDL VIEWS RIGHT, US BREAST UNILATERAL RIGHTLIMITED LOCATION: [facility] DATE/TIME: 08/16/2020 8:20 AM INDICATION: 49-year-old female called back from screening for focalasymmetry in the medial right breast middle depth. COMPARISON: Prior mammogram exams, including 07/25/2020, 04/22/2015,01/23/2014, 01/02/2013. MAMMOGRAPHIC FINDINGS: Additional views of the right breast wereperformed. There are scattered areas of fibroglandular density. Breasttomosynthesis was used in interpretation. Additional mammographic viewsdemonstrate a persistent 6 x 4 x 4 mm mass in the central, slightly medialbreast at 3:00 anterior depth. Additional 8 x 4 x 4 mm mass in theretroareolar breast at anterior depth. ULTRASOUND FINDINGS: Targeted ultrasound of the central and medial rightbreast in the area of mammographic concern demonstrates a benign 4 x 3 x 4mm simple cyst at 9:00 1 cm from the nipple with additional benign simplecyst at 12:00 retroareolar region, corresponding to the mammographicfindings. IMPRESSION: Benign simple cysts correspond to the mammographic findings in the rightbreast. Recommend routine annual screening mammography. ACR BI-RADS Category 2: Benign. Shavonne Rivera DO MAMMO * ANTI HCV (11/17/2019 1:57 PM CDT) Pathologist [facility] HEPATITIS C ANTIBODY Non-React celeste Non-React celeste 11/17/2019 8:49 PM CDT [facility] Comment:Antibodies to HCV no t detected; does not exclude the possibility of exposure to HCV. Blood BLOOD SPECIMEN / Unknown Venipuncture / Unknown 11/17/2019 1:57 PM CDT 11/17/2019 1:57 PM CDT Shavonne Rivera DO SEND OUTS Performing Organization Address [facility] [[email or web address]] Co de Phone Number [facility] [address] [place] [address], [place] * ANTI HIV 1/2 (11/17/2019 1:57 PM CDT) Pathologist [facility] HIV-1/HIV-2 ANTIBODY Non-Reacti ve Non-Reacti ve 11/17/2019 8:50 PM CDT [facility] Comment:HIV-1 p24 and HIV-1/ HIV-2 Ab not detected. Blood BLOOD SPECIMEN / Unknown Venipuncture / Unknown 11/17/2019 1:57 PM CDT 11/17/2019 1:57 PM CDT Shavonne Rivera DO SEND OUTS [facility] [address] [place] [address], [place] * [employer] WORK[employer] THIN PREP PAP SCREEN IMAGED (11/17/2019 1:49 PM CDT) Case Report Gynecologic Cytology Report ? Case: [id number] ? Authorizing Provider: ??Shavonne Rivera, DO ? Collected: ? 11/17/2019 1349 ? Ordering Location: ? [facility] ?? Received: ?11/17/2019 1349 ? Clinic ? First Screen: ?Jessenia Rios ? Rescreen: ?William Torrez ? Specimen: ?[employer] WORK[employer] ThinPrep Vial Screening, Cervical ? 11/24/2019 4:45 PM CDT [facility] INTERPRETATION/ RESULT NEGATIVE FOR INTRAEPITHELIAL LESION OR MALIGNANCY (NIL) (none) 11/24/2019 4:45 PM CDT [facility] IMEN ADEQUACY Satisfactory for evaluation No endocervical component seen 11/24/2019 4:45 PM CDT [facility] HPV REQUEST HPV and PAP 11/24/2019 4:45 PM CDT [facility] Date of LMP 11/03/19 11/24/2019 4:45 PM CDT [facility] Last Pap Date 10/05/16 11/24/2019 4:45 PM CDT [facility] Last Pap Result NIL 0 4:45 PM CDT [facility] Abnormal Pap or [place] Bx in last 5 years Yes 11/24/2019 4:45 PM CDT [facility] Menstrual Status Regular Periods 11/24/2019 4:45 PM CDT [facility] [place] Bx Done Today No 11/24/2019 4:45 PM CDT [facility] Additional Information None given 11/24/2019 4:45 PM CDT [facility] Comment: Cytology is screened at [facility] - [address], [place] [address] and [facility] - [address], [place] [address] and [facility] - [address], [place] [address] Interpreted at [facility] - [address], [place] [address] Automated Review Successful 11/24/2019 4:45 PM CDT [facility] Comment:Specimen processed s uccessfully by automated professor of environmental studies device, ThinPrep Imaging System, [employer] ANCILLARY TESTING [employer] WORKER HPV Ordered, Please see separate report 11/24/2019 4:[address] [facility]AT[facility] Note The pap test is a screening technique, not a diagnostic procedure. It is used primarily to screen for squamous cancers and precursor lesions. Published studies have shown that it is subject to both false negative and false positive results. The pap test should not be used as the sole means to diagnose or exclude pre-malignant and malignant lesions. 11/24/2019 4:[address] [facility] Access [facility] Other (Cervical) Non-Blood / Unknown 11/17/2019 1:49 PM CDT 11/17/2019 1:49 PM CDT Shavonne Rivera DO PATHOLOGY/CYTOLOGY [facility] Access [facility] [address] [place] [address], * COLONOSCOPY SCREENING (11/21/2018 12:00 AM CDT) Shavonne Rivera DO GI PROCEDURE ORD from Last 3 Months or Most Recently Relevant to Health Maintenance Advance Directives * Full Code (Latest Code Status on File) Date Activated Date Inactivated Comments 07/03/2012 3:19 AM 07/05/2012 2:41 PM * Full Code Date Activated Date Inactivated Comments 06/14/2012 11:54 AM 06/14/2012 8:29 PM * Full Code Date Activated Date Inactivated Comments 03/09/2011 8:51 AM 03/09/2011 12:54 PM * Full Code Date Activated Date Inactivated Comments 02/10/2011 10:24 AM 02/10/2011 5:12 PM * Full Code Date Activated Date Inactivated Comments 05/23/2008 3:55 AM 05/23/2008 1:28 PM Care Teams Account Services Specialist Relationship Specialty Start Date End Date Pcp, No . PCP - General 07/04/22 Greg Lovell MD [address] [place] [address] [place], [place] [id number] Perinatology NETBACKUP ADMINISTRATOR Perinatology 08/29/10 Juan Jones [address] [place] [address] [place] [address] Hematology Hematology and Oncology 02/03/11
== END 2023-08-27 08:38 | disposition home or self-care (01) ==
LOC: NFLDREF 08-30 07:26
PROVIDERS: PCP Family Medicine; Referring Provider Family Medicine; Visit Provider Family Medicine
DX: E11.9 Type 2 diabetes mellitus without complications (principal); E78.5 Hyperlipidemia, unspecified
CPT/HCPCS: 82043; 82570

== ENCOUNTER 2023-08-31 09:42 | Outpatient (CLI) | payer MEDICARE, SELFPAY ==
--- OUTSIDE RECORDS SUMMARY | 2023-08-31 09:49 | XMS_ITS | Referral Summary ---
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 Height - - Body Mass Index - [...] and gender (Tj et al., NEJ, DOI: [email or web address]/[id number]) Blood BLOOD SPECIMEN / Unknown Venipuncture / Unknown 09/19/2021 1:38 PM CDT 09/19/2021 1:43 PM CDT Felipe Senior MD LAB - BLOOD [facility] [address] Lab (1st floor, no room number) [place] [address], [facility] [phone] from Last 3 Months or Most Recently Relevant to Health Maintenance Care Teams Air Drill Operator Relationship Specialty Start Date End Date [facility] [place] [address] [place] [address] PCP - General 09/19/21
--- OUTSIDE RECORDS SUMMARY | 2023-08-31 09:49 | XMS_ITS | Clinical Summary ---
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 Height - - Body Mass Index - [...] and gender (Tj et al., NEJM, DOI: 10.1056/[id number]) Blood BLOOD SPECIMEN / Unknown Venipuncture / Unknown 09/19/2021 1:38 PM CDT 09/19/2021 1:43 PM CDT Felipe Senior MD LAB - BLOOD [facility] Organization Address City/State/ZIP Co de Phone Number LABORATORY [facility] Acute [facility] Lab [address] Lab (1st floor, no room number) [place] [address], [facility] [phone] from Last 3 Months or Most Recently Relevant to Health Maintenance Care Teams Price Accuracy Supervisor Relationship Specialty Start Date End Date [facility], [facility] [address] [place] [address] PCP - General 09/19/21
--- OUTSIDE RECORDS SUMMARY | 2023-08-31 09:50 | XMS_ITS | Clinical Summary ---
Author Name Unknown Organization [facility] Address [place], [place] [address] Care Team Providers Care Box Lining Machine Feeder Name Role Phone Greg Lovell MD Unavailable [phone] Juan Jones Unavailable Unavailable Pcp, No Primary [...] 0 Active olopatadine (PATADAY) 0.2 % ophthalmic solutionIndications:Shear Operator lory nonseasonal allergic rhinitis due to pollen [...] 011 S/P bilateral tubal ligation 03/10/2011 Overview: [place] procedure VIDYA 07/30/2010 AHI- 22, REM-94 with [...] Primary hypercoagulable state Overview: anti-thrombin III deficiency (Supervisor Cook Room: Dr Jones)~anticoag therapy~hypercholesterolemia~obesity Resolved Problems Problem Noted [...] reflux 08/10/2005 03/10/2011 Single liveborn, born in [facility], delivered by delivery 03/05/2005 03/10/2011 Pain in [...] Sex Assigned at Female 03/26/2020 9:52 AM COMPLETIONS ENGINEER Gender Identity Female 03/26/2020 9:52 AM COMPLETIONS ENGINEER Sexual Orientation Choose not to disclose 2019 9:52 AM COMPLETIONS ENGINEER Obstetrics History Para Term AB IAB SAB [...] lb 11 oz) F Gener al N Iade ng MPP-A NW Comments:unfavorable c x 03/05 Term 38w 0d 3.35 kg (7 lb 6 oz) F Epidu ral N Aide ng MPP-A NW 03/09 Term 39w 2d M CS-LTranv N Aide ng Rishabh enko Delivery Location:[place] Last Filed Vital Signs Vital Sign Reading Time Taken Comments Blood Pressure 175/83 03/08/2023 9:00 PM COMPLETIONS ENGINEER Pulse 64 03/08/2023 9:00 PM COMPLETIONS ENGINEER Temperature 36.4 ??C (97.6 ??F) 03/08/2023 5:38 PM CS T Respiratory Rate 18 03/08/2023 5:38 PM COMPLETIONS ENGINEER Oxygen Saturation 99% 03/08/2023 9:00 PM COMPLETIONS ENGINEER Inhaled Oxygen Concentration - - Weight 86.2 kg (190 lb) 03/08/2023 5:38 PM COMPLETIONS ENGINEER Height 157.5 cm (5' 2) 03/08/2023 5:38 PM COMPLETIONS ENGINEER Body Mass Index 34.75 03/08/2023 5:38 PM COMPLETIONS ENGINEER Plan of Treatment Health Maintenance Due Date [...] CDT Exposure to potentially hazardous body fluids REAL ESTATE BROKER THIN PREP PAP SCREEN IMAGED Routine 11/17/2019 1:49 PM CDT Cervical cancer screening COLONOSCOPY SCREENING Routine 11/21/2018 12:00 AM CDT History of colon polyps from Last 3 Months or Most Recently Relevant to Health Maintenance Results * (ABNORMAL) LIPID PANEL W REFLEX MEASURED LDL (09/10/2021 11:04 AM CDT) CHOLESTEROL,TOTAL 141 100 - 199 mg/dL 09/10/2021 5:12 PM CDT [facility] TRAL LABORATORY TRIGLYCERIDES 146 <150 mg/dL 09/10/2021 5:12 PM CDT [facility] TRAL LABORATORY HDL CHOLESTEROL 40(L) >40 mg/dL 5:12 PM CDT [facility] TRAL LABORATORY NON-HDL CHOLESTEROL 101 <145 mg/dl 09/10/2021 5:12 PM CDT [facility] TRAL LABORATORY CHOL/HDL RATIO 3.53 <4.50 09/10/2021 5:12 PM CDT [facility] TRAL LABORATORY LDL CHOLESTEROL 72 <=130 mg/dL 09/10/2021 5:12 PM CDT [facility] TRAL LABORATORY VLDL CHOLESTEROL 29 <=30 mg/dL 09/10/2021 5:12 PM CDT [facility] TRAL LABORATORY PROVIDER ORDERED STATUS RANDOM 09/10/2021 5:12 PM CDT [facility] TRAL LABORATORY Blood BLOOD SPECIMEN / Unknown Venipuncture / Unknown 09/10/2021 11:04 AM CDT 09/10/2021 11:04 AM CDT Kimmy Rodríguez NP CHEMISTRY [facility] [address] [place] [address], [place] * XR MAMMO GISSEL UNI ADDL VIEWS RIGHT (08/16/2020 8:20 AM CDT) Anatomical Region Laterality Modality BREASTS, Breast Right Mammograph y 08/16/2020 8:20 AM CDT Narrative 08/16/2020 10:46 AM CDT EXAM: XR MAMMO GISSEL UNI ADDL VIEWS RIGHT, US BREAST UNILATERAL RIGHT LIMITED LOCATION: [facility] DATE/TIME: 08/16/2020 8:20 AM INDICATION: ??49-year-old female [...] RIGHTLIMITED LOCATION: [facility] DATE/TIME: 08/16/2020 8:20 AM INDICATION: 49-year-old female [...] ANTI HCV (11/17/2019 1:57 PM CDT) Pathologist [facility] HEPATITIS C ANTIBODY Non-React celeste Non-React celeste 11/17/2019 8:49 PM CDT [facility] TRAL LABORATORY Comment:Antibodies to HCV no t detected; does not exclude the possibility of exposure to HCV. Blood BLOOD SPECIMEN / Unknown Venipuncture / Unknown 11/17/2019 1:57 PM CDT 11/17/2019 1:57 PM CDT Shavonne Rivera DO SEND OUTS Performing Organization Address [facility] Co de Phone Number [facility] [address] [place] [address], [place] * ANTI HIV 1/2 (11/17/2019 1:57 PM CDT) Pathologist [facility] HIV-1/HIV-2 ANTIBODY Non-Reacti ve Non-Reacti ve 11/17/2019 8:50 PM CDT [facility] TRAL LABORATORY Comment:HIV-1 p24 and HIV-1/ HIV-2 Ab not detected. Blood BLOOD SPECIMEN / Unknown Venipuncture / Unknown 11/17/2019 1:57 PM CDT 11/17/2019 1:57 PM CDT Shavonne Rivera DO SEND OUTS [facility] LABORATORY-CENTRAL LABORATORY [address] [place] [address], [place] * REAL ESTATE BROKER THIN PREP PAP SCREEN IMAGED (11/17/2019 1:49 PM CDT) Case Report Gynecologic Cytology Report ? Case: [id number] ? Authorizing Provider: ??Shavonne Rivera, DO ? Collected: ? 11/17/2019 1349 ? Ordering Location: ? [facility] ?? Received: ?11/17/2019 1349 ? Clinic ? First Screen: ?Jessenia Rios ? Rescreen: ?William Torrez ? Specimen: ?REAL ESTATE BROKER ThinPrep Vial Screening, Cervical ? 11/24/2019 4:45 PM CDT [facility] ENTRME LABORATORY INTERPRETATION/ RESULT NEGATIVE FOR INTRAEPITHELIAL LESION OR MALIGNANCY (NIL) (none) 11/24/2019 4:45 PM CDT [facility] LABORATORY IMEN ADEQUACY Satisfactory for evaluation No endocervical component seen 11/24/2019 4:45 PM CDT [facility] ENTRME LABORATORY HPV REQUEST HPV and PAP 11/24/2019 4:45 PM CDT [facility] ENTRAL LABORATORY Date of LMP 11/03/19 11/24/2019 4:45 PM CDT [facility] ENTRAL LABORATORY Last Pap Date 10/05/16 11/24/2019 4:45 PM CDT [facility] ENTRAL LABORATORY Last Pap Result NIL 0 4:45 PM CDT [facility] ENTRAL LABORATORY Abnormal Pap or Mesa Bx in last 5 years Yes 11/24/2019 4:45 PM CDT [facility] ENTRAL LABORATORY Menstrual Status Regular Periods 11/24/2019 4:45 PM CDT [facility] LABORATORY Mesa Bx Done Today No 11/24/2019 4:45 PM CDT [facility] ENTRME LABORATORY Additional Information None given 11/24/2019 4:45 PM CDT [facility] ENTRAL LABORATORY Comment: Cytology is screened at [facility] Laboratory - [address], [place] [address] and [facility] - [address], [place] [address] and [facility] Laboratory - [address], [place] [address] Interpreted at [facility] - [address], [place] [address] Automated Review Successful 11/24/2019 4:45 PM CDT [facility] ENTRME LABORATORY Comment:Specimen processed s uccessfully by automated plate preparer device, ThinPrep Imaging System, [employer] ANCILLARY TESTING REAL ESTATE BROKER HPV Ordered, Please see separate report 11/24/2019 4:45 PM CDT [facility]-C ENTRAL LABORATORY Note The pap test [...] and malignant lesions. 11/24/2019 4:45 PM CDT [facility]- ENTRME LABORATORY Other (Cervical) Non-Blood / Unknown 11/17/2019 1:49 PM CDT 11/17/2019 1:49 PM CDT Shavonne Rivera DO PATHOLOGY/CYTOLOGY [facility]-CENTRAL LABORATORY [address] [place] [address], * COLONOSCOPY SCREENING (11/21/2018 12:00 AM CDT) [...] 3:55 AM 05/23/2008 1:28 PM Care Teams Box Lining Machine Feeder Relationship Specialty Start Date End Date Pcp, No . PCP - General 07/04/22 Greg Lovell MD [address] [place] [id number] [place], [place] [id number] Perinatology DEPARTMENT OF NATURAL RESOURCES OFFICER Perinatology 08/29/10 Juan Jones [address] [place] [address] [place] [address] Hematology Hematology and Oncology 02/03/11
== END 2023-08-31 09:43 | disposition home or self-care (01) ==
PROVIDERS: PCP Family Medicine; Visit Provider Family Medicine
DX: L65.9 Nonscarring hair loss, unspecified (principal); Z11.3 Encounter for screening for infections with a predominantly sexual mode of transmission; Z13.29 Encounter for screening for other suspected endocrine disorder
CPT/HCPCS: 84443; 86592; 86703

== ENCOUNTER 2023-09-02 08:48 | Outpatient (CLI) | payer MEDICARE, SELFPAY ==
--- OUTSIDE RECORDS SUMMARY | 2023-09-03 06:52 | XMS_ITS | Referral Summary ---
Author Name Unknown Organization [place] Address [address] [place] [address] Care Team Providers Care Supervisor Gas Meter Repair Name Role Phone Clinic, Annmarie Lazaroton Primary [...] (195 lb 12.3 oz) 06/14/2021 1:25 PM STEM THRESHING MACHINE OPERATOR Height - - Body Mass Index - [...] and gender (Tj et al., NEJ, DOI: 10.1056/[id number]) Blood BLOOD SPECIMEN / Unknown Venipuncture / Unknown 09/19/2021 1:38 PM CDT 09/19/2021 1:43 PM CDT Felipe Senior MD LAB - BLOOD [facility] LABORATORY [facility] Acute Care Lab [address] Lab (1st floor, no room number) [place] [address], [facility] [phone] from Last 3 Months or Most Recently Relevant to Health Maintenance Care Teams Supervisor Gas Meter Repair Relationship Specialty Start Date End Date [facility] [place] [address] [place] [address] PCP - General 09/19/21
--- OUTSIDE RECORDS SUMMARY | 2023-09-03 06:52 | XMS_ITS | Continuity of Care Document ---
Author Name Unknown Organization [facility] Address [address] [address] [place] [address] Phone Care Team Providers Care Sweatband Separator Name Role Phone Unavailable Unavailable Unavailable Allergies, Adverse Reactions, Alerts Substance Reaction Status Criticality NSAIDS (Non-Steroidal Anti-Inflammatory Drug) on couma din Active No Information Medications Medication Instructions Dosage Effective Dates (start - stop) Status Comments Lipitor 20 mg Tab Take one tablet by mouth daily - Active Alva 180 mg Tab Take one tablet by mouth daily - Active Nasonex 50 mcg/Actuation [place] Inhale one time via nostril daily - [...] Diagnoses Date Provider Providers Copied on Encounter [facility], [address] [address], [place], [place], [id number], tel:[phone] [facility] Abn X-ray GI tract No Information Referring Provider: Miles Lockhart MD [facility], [address] [place] [address], [address]. tel:[phone] Family History Family Member Type Diagnosis Age [...]
--- OUTSIDE RECORDS SUMMARY | 2023-09-03 06:52 | XMS_ITS | Clinical Summary ---
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 Height - - Body Mass Index - [...] and gender (Tj et al., NEJM, DOI: 10.1056/[id number]) Blood BLOOD SPECIMEN / Unknown Venipuncture / Unknown 09/19/2021 1:38 PM CDT 09/19/2021 1:43 PM CDT Felipe Senior MD LAB - BLOOD [facility] Organization Address City/State/ZIP Co de Phone Number LABORATORY [facility] Acute Care Lab [address] Lab (1st floor, no room number) [place] [address], [facility] [phone] from Last 3 Months or Most Recently Relevant to Health Maintenance Care Teams Flare Stitcher Relationship Specialty Start Date End Date [facility], [facility] [address] [place] [address] PCP - General 09/19/21
--- OUTSIDE RECORDS SUMMARY | 2023-09-03 06:53 | XMS_ITS | Clinical Summary ---
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 lory nonseasonal allergic rhinitis due to pollen [...] 011 S/P bilateral tubal ligation 03/10/2011 Overview: [place] procedure VIDYA 07/30/2010 AHI- 22, REM-94 with [...] Primary hypercoagulable state Overview: anti-thrombin III deficiency (Botany Professor: Dr Jones)~anticoag therapy~hypercholesterolemia~obesity Resolved Problems Problem Noted [...] reflux 08/10/2005 03/10/2011 Single liveborn, born in [facility], delivered by delivery 03/05/2005 03/10/2011 Pain in [...] Sex Assigned at Female 03/26/2020 9:52 AM CONSTRUCTION TRADES CONTRACTOR Gender Identity Female 03/26/2020 9:52 AM CONSTRUCTION TRADES CONTRACTOR Sexual Orientation Choose not to disclose 2019 9:52 AM CONSTRUCTION TRADES CONTRACTOR Obstetrics History Para Term AB IAB SAB [...] CS-LTranv N Aide ng Rishabh enko Delivery Location:[place] Last Filed Vital Signs Vital Sign Reading Time Taken Comments Blood Pressure 175/83 03/08/2023 9:00 PM CONSTRUCTION TRADES CONTRACTOR Pulse 64 03/08/2023 9:00 PM CONSTRUCTION TRADES CONTRACTOR Temperature 36.4 ??C (97.6 ??F) 03/08/2023 5:38 PM CS T Respiratory Rate 18 03/08/2023 5:38 PM CONSTRUCTION TRADES CONTRACTOR Oxygen Saturation 99% 03/08/2023 9:00 PM CONSTRUCTION TRADES CONTRACTOR Inhaled Oxygen Concentration - - Weight 86.2 kg (190 lb) 03/08/2023 5:38 PM CONSTRUCTION TRADES CONTRACTOR Height 157.5 cm (5' 2) 03/08/2023 5:38 PM CONSTRUCTION TRADES CONTRACTOR Body Mass Index 34.75 03/08/2023 5:38 PM CONSTRUCTION TRADES CONTRACTOR Plan of Treatment Health Maintenance Due Date [...] CDT Exposure to potentially hazardous body fluids BOATSWAIN MATE THIN PREP PAP SCREEN IMAGED Routine 11/17/2019 1:49 PM CDT Cervical cancer screening COLONOSCOPY SCREENING Routine 11/21/2018 12:00 AM CDT History of colon polyps from Last 3 Months or Most Recently Relevant to Health Maintenance Results * (ABNORMAL) LIPID PANEL W REFLEX MEASURED LDL (09/10/2021 11:04 AM CDT) CHOLESTEROL,TOTAL 141 100 - 199 mg/dL 09/10/2021 5:12 PM CDT [facility] TRAL LABORATORY TRIGLYCERIDES 146 <150 mg/dL 09/10/2021 5:12 PM CDT [facility] TRAL LABORATORY HDL CHOLESTEROL 40(L) >40 mg/dL 5:12 PM CDT [facility] TRAL LABORATORY NON-HDL CHOLESTEROL 101 <145 mg/dl 09/10/2021 5:12 PM CDT [facility] TRAL LABORATORY CHOL/HDL RATIO 3.53 <4.50 09/10/2021 5:12 PM CDT [facility] TRAL LABORATORY LDL CHOLESTEROL 72 <=130 mg/dL 09/10/2021 5:12 PM CDT [facility] TRAL LABORATORY VLDL CHOLESTEROL 29 <=30 mg/dL 09/10/2021 5:12 PM CDT [facility] TRAL LABORATORY PROVIDER ORDERED STATUS RANDOM 09/10/2021 5:12 PM CDT [facility] TRAL LABORATORY Blood BLOOD SPECIMEN / Unknown Venipuncture / Unknown 09/10/2021 11:04 AM CDT 09/10/2021 11:04 AM CDT Kimmy Rodríguez NP CHEMISTRY [facility] [address] [place] [address], [place] * XR MAMMO GISSEL UNI ADDL VIEWS RIGHT (08/16/2020 8:20 AM CDT) Anatomical Region Laterality Modality BREASTS, Breast Right Mammograph y 08/16/2020 8:20 AM CDT Narrative 08/16/2020 10:46 AM CDT EXAM: XR MAMMO GISSEL UNI ADDL VIEWS RIGHT, US BREAST UNILATERAL RIGHT LIMITED LOCATION: [facility] DATE/TIME: 08/16/2020 8:20 AM INDICATION: ??49-year-old female [...] VIEWS RIGHT, US BREAST UNILATERAL RIGHTLIMITED LOCATION: [facility] DATE/TIME: 08/16/2020 8:20 AM INDICATION: 49-year-old female [...] (11/17/2019 1:57 PM CDT) Pathologist [facility] HEPATITIS C ANTIBODY Non-React celeste Non-React celeste 11/17/2019 8:49 PM CDT [facility] TRAL LABORATORY Comment:Antibodies to HCV no t detected; does not exclude the possibility of exposure to HCV. Blood BLOOD SPECIMEN / Unknown Venipuncture / Unknown 11/17/2019 1:57 PM CDT 11/17/2019 1:57 PM CDT Shavonne Rivera DO SEND OUTS Performing Organization Address [facility] Co de Phone Number [facility] [address] [place] [address], [place] * ANTI HIV 1/2 (11/17/2019 1:57 PM CDT) Pathologist [facility] HIV-1/HIV-2 ANTIBODY Non-Reacti ve Non-Reacti ve 11/17/2019 8:50 PM CDT [facility] TRAL LABORATORY Comment:HIV-1 p24 and HIV-1/ HIV-2 Ab not detected. Blood BLOOD SPECIMEN / Unknown Venipuncture / Unknown 11/17/2019 1:57 PM CDT 11/17/2019 1:57 PM CDT Shavonne Rivera DO SEND OUTS [facility] LABORATORY-CENTRAL LABORATORY [address] [place] [address], [place] * BOATSWAIN MATE THIN PREP PAP SCREEN IMAGED (11/17/2019 1:49 PM CDT) Case Report Gynecologic Cytology Report ? Case: [id number] ? Authorizing Provider: ??Shavonne Rivera, DO ? Collected: ? 11/17/2019 1349 ? Ordering Location: ? [facility] ?? Received: ?11/17/2019 1349 ? Clinic ? First Screen: ?Jessenia Rios ? Rescreen: ?William Torrez ? Specimen: ?BOATSWAIN MATE ThinPrep Vial Screening, Cervical ? 11/24/2019 4:[address] [facility] ENTRIL LABORATORY INTERPRETATION/ RESULT NEGATIVE FOR INTRAEPITHELIAL LESION OR MALIGNANCY (NIL) (none) 11/24/2019 4:45 PM CDT [facility] LABORATORY IMEN ADEQUACY Satisfactory for evaluation No endocervical component seen 11/24/2019 4:[address] [facility] ENTRIL LABORATORY HPV REQUEST HPV and PAP 11/24/2019 4:[address] [facility] ENTRAL LABORATORY Date of LMP 11/03/19 11/24/2019 4:[address] [facility] ENTRAL LABORATORY Last Pap Date 10/05/16 11/24/2019 4:[address] [facility] ENTRAL LABORATORY Last Pap Result NIL 0 4:[address] [facility] ENTRAL LABORATORY Abnormal Pap or Reagan Bx in last 5 years Yes 11/24/2019 4:[address] [facility] ENTRAL LABORATORY Menstrual Status Regular Periods 11/24/2019 4:45 PM CDT [facility] LABORATORY Reagan Bx Done Today No 11/24/2019 4:[address] [facility] ENTRIL LABORATORY Additional Information None given 11/24/2019 4:[address] [facility] ENTRAL LABORATORY Comment: Cytology is screened at [facility] - [address], [place] [address] [facility] Laboratory - [address], [place] [address] and [facility] Laboratory - [address], [place] [address] Interpreted at [facility] - [address], [place] [address] Automated Review Successful 11/24/2019 4:[address] [facility] ENTRIL LABORATORY Comment:Specimen processed s uccessfully by automated spar machine operator helper device, ThinPrep Imaging System, [employer] ANCILLARY TESTING BOATSWAIN MATE HPV Ordered, Please see separate report 11/24/2019 4:45 PM CDT [facility] LAB[facility]-C ENTRAL LABORATORY Note The pap test [...] and malignant lesions. 11/24/2019 4:45 PM CDT [facility]- ENTRIL LABORATORY Other (Cervical) Non-Blood / Unknown 11/17/2019 1:49 PM CDT 11/17/2019 1:49 PM CDT Shavonne Rivera DO PATHOLOGY/CYTOLOGY [facility] LABORATORY-CENTRAL LABORATORY [address] [place] [address], * COLONOSCOPY SCREENING (11/21/2018 12:00 AM CDT) [...] 3:55 AM 05/23/2008 1:28 PM Care Teams Cut Off Machine Unloader Relationship Specialty Start Date End Date Pcp, No . PCP - General 07/04/22 Greg Lovell MD [address] [place] [id number] [place], [place] [id number] Perinatology CARBON CAPTURE POWER PLANT MANAGER Perinatology 08/29/10 Juan Jones [address] [place] [address] [place] [address] Hematology Hematology and Oncology 02/03/11
== END 2023-09-02 08:49 | disposition home or self-care (01) ==
LOC: NFLDREF 09-03 06:50
PROVIDERS: PCP Family Medicine; Referring Provider Family Medicine; Visit Provider Family Medicine
DX: Z00.00 Encounter for general adult medical examination without abnormal findings (principal); L65.9 Nonscarring hair loss, unspecified; Z11.3 Encounter for screening for infections with a predominantly sexual mode of transmission; Z79.01 Long term (current) use of anticoagulants
CPT/HCPCS: 87491; 87591

== ENCOUNTER 2023-11-16 10:55 | Outpatient (CLI) | payer MEDICARE, SELFPAY ==
--- OUTSIDE RECORDS SUMMARY | 2023-11-17 11:34 | XMS_ITS | Clinical Summary ---
Author Organization [place] Address [address] [place] [address] Care Team Providers Care Funding Coordinator Name Role Phone Clinic, Annmarie Lazaroton Primary [...] (195 lb 12.3 oz) 06/14/2021 1:[address] MAGISTRATE Height - - Body Mass Index - [...] of 2) 2022 COVID-19 Vaccine (4 - 2022- season) 2022 07/21/2021, 10/21/2020, 09/19/2020 PHQ-2 (once per calendar year) 2023 INFLUENZA VACCINE (#1) 2023 , 01/10/2020, 02/11/2018, Additional history exists DTAP/TDAP/TD IMMUNIZATION [...] and gender (Tj et al., NEJM, DOI: 10.1056/[id number]) Blood BLOOD SPECIMEN / Unknown Venipuncture / Unknown 09/19/2021 1:38 PM CDT 09/19/2021 1:43 PM CDT Felipe Senior MD LAB - BLOOD [facility] Organization Address City/State/ZIP Co de Phone Number LABORATORY [facility] Acute Care Lab [address] Lab (1st floor, no room number) [place] [address], [facility] [phone] from Last 3 Months or Most Recently Relevant to Health Maintenance Care Teams Funding Coordinator Relationship Specialty Start Date End Date [facility], [facility] [address] [place] [address] PCP - General 09/19/21
--- OUTSIDE RECORDS SUMMARY | 2023-11-17 11:34 | XMS_ITS | Referral Summary ---
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 Height - - Body Mass Index [...] and gender (Tj et al., NEJM, DOI: 10.1056/[id number]) Blood BLOOD SPECIMEN / Unknown Venipuncture / Unknown 09/19/2021 1:38 PM CDT 09/19/2021 1:43 PM CDT Felipe Senior MD LAB - BLOOD [place] Organization Address City/State/ZIP Co de Phone Number LABORATORY [facility] Acute Care Lab [address] Lab (1st floor, no room number) [place] [address], [facility] [phone] from Last 3 Months or Most Recently Relevant to Health Maintenance Care Teams Fleet Salesperson Relationship Specialty Start Date End Date [facility] [place] [address] [place] [address] PCP - General 09/19/21
--- OUTSIDE RECORDS SUMMARY | 2023-11-17 11:35 | XMS_ITS | Clinical Summary ---
Author Organization [employer] [facility] Address [place], [place] [address] Care Team Providers Care Hot Car Charger Name Role Phone Greg Lovell MD Unavailable [phone] Juan Jones Unavailable Unavailable Pcp, No Primary [...] 0 Active olopatadine (PATADAY) 0.2 % ophthalmic solutionIndications:Residential Supervisor lory nonseasonal allergic rhinitis due to pollen [...] 011 S/P bilateral tubal ligation 03/10/2011 Overview: [place] procedure VIDYA 07/30/2010 AHI- 22, REM-94 with [...] Primary hypercoagulable state Overview: anti-thrombin III deficiency (Netting Inspector: Dr Jones)~anticoag therapy~hypercholesterolemia~obesity Resolved Problems Problem Noted [...] 08/10/2005 03/10/2011 Single liveborn, born in [facility], delivered by delivery 03/05/2005 03/10/2011 Pain [...] Sex Assigned at Female 03/26/2020 9:52 AM SKIDDER DRIVER Gender Identity Female 03/26/2020 9:52 AM SKIDDER DRIVER Sexual Orientation Choose not to disclose 2019 9:52 AM SKIDDER DRIVER Obstetrics History Para Term AB IAB SAB Ectopic Multiple Livin g Live Births 5 3 3 0 2 1 0 0 0 3 4 Date Outcome GA Total Labor Labor/2nd/3rd Weight Sex Type Anes PTL Keira A1 A5 Name Clin 1988 AB 8w0 d 1998 IAB 12w 0d ELECTI VE AB Decea sed 2002 Term 39w 0d 9h 00m/ 3.94 kg (8 lb 11 oz) F C-Sect ion Genera l N Livin g MPP-A NW Comments:unfavorable c x 2004 Term 38w 0d 3.35 kg (7 lb 6 oz) F C-Sect ion Epidur al N Livin g MPP-A NW 2010 Term 39w 2d M CS-LTr anv N Livin g Rishabh enko Delivery Location:[place] Last Filed Vital Signs Vital Sign Reading Time Taken Comments Blood Pressure 175/83 03/08/2023 9:00 PM SKIDDER DRIVER Pulse 64 03/08/2023 9:00 PM SKIDDER DRIVER Temperature 36.4 ??C (97.6 ??F) 03/08/2023 5:38 PM CS T Respiratory Rate 18 03/08/2023 5:38 PM SKIDDER DRIVER Oxygen Saturation 99% 03/08/2023 9:00 PM SKIDDER DRIVER Inhaled Oxygen Concentration - - Weight 86.2 kg (190 lb) 03/08/2023 5:38 PM SKIDDER DRIVER Height 157.5 cm (5' 2) 03/08/2023 5:38 PM SKIDDER DRIVER Body Mass Index 34.75 03/08/2023 5:38 PM SKIDDER DRIVER Plan of Treatment Health Maintenance Due Date [...] exists Pap test for age 21-65 11/16/2024 0, 11/17/2019, 10/05/2016, Additional history exists Lipids for [...] CDT Exposure to potentially hazardous body fluids ELECTRICAL ENGINEER THIN PREP PAP SCREEN IMAGED Routine 11/17/2019 1:49 PM CDT Cervical cancer screening COLONOSCOPY SCREENING Routine 11/21/2018 12:00 AM CDT History of colon polyps from Last 3 Months or Most Recently Relevant to Health Maintenance Results * (ABNORMAL) LIPID PANEL W REFLEX MEASURED LDL (09/10/2021 11:04 AM CDT) CHOLESTEROL,TOTAL 141 100 - 199 mg/dL 09/10/2021 5:12 PM CDT [facility] TRIGLYCERIDES 146 <150 mg/dL 09/10/2021 5:12 PM CDT [facility] HDL CHOLESTEROL 40(L) >40 mg/dL 5:12 PM CDT [facility] NON-HDL CHOLESTEROL 101 <145 mg/dl 09/10/2021 5:12 PM CDT [facility] CHOL/HDL RATIO 3.53 <4.50 09/10/2021 5:12 PM CDT [facility] LDL CHOLESTEROL 72 <=130 mg/dL 09/10/2021 5:12 PM CDT [facility] VLDL CHOLESTEROL 29 <=30 mg/dL 09/10/2021 5:12 PM CDT [facility] PROVIDER ORDERED STATUS RANDOM 09/10/2021 5:12 PM CDT [facility] Blood BLOOD SPECIMEN / Unknown Venipuncture / Unknown 09/10/2021 11:04 AM CDT 09/10/2021 11:04 AM CDT Kimmy Rodríguez NP CHEMISTRY [facility] [address] [place] [address], [place] * XR MAMMO GISSEL UNI ADDL VIEWS RIGHT (08/16/2020 8:20 AM CDT) Anatomical Region Laterality Modality BREASTS, Breast Right Mammograph y 08/16/2020 8:20 AM CDT Narrative 08/16/2020 10:46 AM CDT EXAM: XR MAMMO GISSEL UNI ADDL VIEWS RIGHT, US BREAST UNILATERAL RIGHT LIMITED LOCATION: [facility] DATE/TIME: 08/16/2020 8:20 AM INDICATION: ??49-year-old [...] VIEWS RIGHT, US BREAST UNILATERAL RIGHTLIMITED LOCATION: [facility] DATE/TIME: 08/16/2020 8:20 AM INDICATION: 49-year-old [...] * ANTI HCV (11/17/2019 1:57 PM CDT) HEPATITIS C ANTIBODY Non-React celeste Non-React celeste 11/17/2019 8:49 PM CDT [facility] Comment:Antibodies to HCV no t detected; does not exclude the possibility of exposure to HCV. Blood BLOOD SPECIMEN / Unknown Venipuncture / Unknown 11/17/2019 1:57 PM CDT 11/17/2019 1:57 PM CDT Shavonne Rivera DO SEND OUTS Performing Organization Address City/[facility] [[email or web address]] Co de Phone Number [facility] [address] [place] [address], * ANTI HIV 1/2 (11/17/2019 1:57 PM CDT) HIV-1/HIV-2 ANTIBODY Non-Reacti ve Non-Reacti ve 11/17/2019 8:50 PM CDT [facility] Comment:HIV-1 p24 and HIV-1/ HIV-2 Ab not detected. Blood BLOOD SPECIMEN / Unknown Venipuncture / Unknown 11/17/2019 1:57 PM CDT 11/17/2019 1:57 PM CDT Shavonne Rivera DO SEND OUTS [facility] [address] [place] [address], [place] * ELECTRICAL ENGINEER THIN PREP PAP SCREEN IMAGED (11/17/2019 1:49 PM CDT) Case Report Gynecologic Cytology Report ? Case: [id number] ? Authorizing Provider: ??Shavonne Rivera, DO ? Collected: ? 11/17/2019 1349 ? Ordering Location: ? [facility] ?? Received: ?11/17/2019 1349 ? Clinic ? First Screen: ?Jessenia Rios ? Rescreen: ?William Torrez ? Specimen: ?ELECTRICAL ENGINEER ThinPrep Vial Screening, Cervical ? 11/24/2019 4:45 PM CDT [facility] INTERPRETATION/ RESULT NEGATIVE FOR INTRAEPITHELIAL LESION OR MALIGNANCY (NIL) (none) 11/24/2019 4:45 PM CDT [facility] IMEN ADEQUACY Satisfactory for evaluation No endocervical component seen 11/24/2019 4:45 PM CDT [facility] HPV REQUEST HPV and PAP 11/24/2019 4:45 PM CDT [facility] Date of LMP 11/03/19 11/24/2019 4:45 PM CDT [facility] Last Pap Date 10/05/16 11/24/2019 4:45 PM CDT [facility] Last Pap Result NIL 0 4:45 PM CDT [facility] Abnormal Pap or [place] Bx in last 5 years Yes 11/24/2019 4:45 PM CDT [facility] Menstrual Status Regular Periods 11/24/2019 4:45 PM CDT [facility] [place] Bx Done Today No 11/24/2019 4:45 PM CDT [facility] Additional Information None given 11/24/2019 4:45 PM CDT [facility] Comment: Cytology is screened at [facility] - [address], [place] [address] and [facility] - [address], [place] [address] and [facility] - [address] [place] [address] Interpreted at [facility] - [address], [place] [address] Automated Review Successful 11/24/2019 4:45 PM CDT [facility] Comment:Specimen processed s uccessfully by automated senior net developer architect device, ThinPrep Imaging System, [employer] ANCILLARY TESTING ELECTRICAL ENGINEER HPV Ordered, Please see separate report 11/24/2019 4:45 PM CDT [facility] Note The pap test [...] and malignant lesions. 11/24/2019 4:45 PM CDT [facility] Other (Cervical) Non-Blood / Unknown 11/17/2019 1:49 PM CDT 11/17/2019 1:49 PM CDT Shavonne Rivera DO PATHOLOGY/CYTOLOGY [facility] [address] [place] [address], * COLONOSCOPY SCREENING (11/21/2018 12:00 AM CDT) [...] 3:55 AM 05/23/2008 1:28 PM Care Teams Hot Car Charger Relationship Specialty Start Date End Date Pcp, No . PCP - General 07/04/22 Greg Lovell MD [address] [place] [id number] [place] [address] Perinatology TELEVISION ANCHOR Perinatology 08/29/10 Juan Jones [address] [place] [id number] [place] [address] Hematology Hematology and Oncology 02/03/11
== END 2023-11-16 10:56 | disposition home or self-care (01) ==
LOC: NFLDREF 11-17 11:32
PROVIDERS: PCP Family Medicine; Referring Provider Family Medicine; Visit Provider Family Medicine
DX: G89.29 Other chronic pain (principal); R68.2 Dry mouth, unspecified; E11.42 Type 2 diabetes mellitus with diabetic polyneuropathy; H04.123 Dry eye syndrome of bilateral lacrimal glands; Z79.01 Long term (current) use of anticoagulants
CPT/HCPCS: 85610; 86039; 86140; 86200; 86235; 86431

== ENCOUNTER 2024-06-06 09:31 | Outpatient (CLI) | payer BC, SELFPAY | END 2024-06-06 09:32 | disposition home or self-care (01) | LOC: NFLDREF 06-09 03:45 | PROVIDERS: PCP Family Medicine; Referring Provider Family Medicine; Visit Provider Family Medicine | DX: Z79.01 Long term (current) use of anticoagulants (principal) | CPT/HCPCS: 85610 ==

== ENCOUNTER 2024-11-13 08:53 | Outpatient (CLI) | payer BC, SELFPAY ==
[2024-11-13 23:21] LABS: Chlamydia DNA Amplified* NOT DETECTED (No Detected); GC DNA Amplified* NOT DETECTED (No Detected)
[2024-11-15 01:57] LABS: HPV Source Endocervical
[2024-11-20 14:19] LABS: Pap Test Digital Imaging Done
== END 2024-11-13 08:54 | disposition home or self-care (01) ==
PROVIDERS: PCP Family Medicine; Visit Provider Family Medicine
DX: Z00.00 Encounter for general adult medical examination without abnormal findings (principal); E11.42 Type 2 diabetes mellitus with diabetic polyneuropathy; E78.5 Hyperlipidemia, unspecified; I10 Essential (primary) hypertension; Z11.3 Encounter for screening for infections with a predominantly sexual mode of transmission; Z12.4 Encounter for screening for malignant neoplasm of cervix; Z11.51 Encounter for screening for human papillomavirus (HPV); Z11.4 Encounter for screening for human immunodeficiency virus [HIV]
CPT/HCPCS: 80053; 80061; 82043; 82570; 86592; 86703; 87491; 87591; 87624; 87625; 88141; 88142; 88175

== ENCOUNTER 2025-01-29 08:12 | Outpatient (CLI) | payer BC, SELFPAY | END 2025-01-29 08:13 | disposition home or self-care (01) | PROVIDERS: PCP Family Medicine; Visit Provider Family Medicine | DX: E11.42 Type 2 diabetes mellitus with diabetic polyneuropathy (principal); I10 Essential (primary) hypertension | CPT/HCPCS: 80053; 80061 ==